=== PATIENT | male | born 1960 | race African-American/Black ===

== ENCOUNTER 2017-05-24 16:05 | Inpatient (IN) | payer BC, SELFPAY ==
[2017-05-24 16:35] LABS: Hemoglobin 15.5 g/dL (14.0-18.0); Mean Corpuscular HGB CONC 33.9 g/dL (32.0-36.0); Mean Corpuscular Hemoglobin 32.7 pg (27.0-31.0); Mean Corpuscular Volume 96.5 fl (80.0-94.0); Mean Platelet Volume 7.5 fL (7.4-10.4); Platelet Count 183 thou/uL (130-400); RBC Distribution Width 12.4 % (11.5-14.5); Red Blood Cell (RBC) Count 4.74 mill/uL (4.70-6.10); White Blood Cell (WBC) Count 2.4 thou/uL (4.8-10.8)
[2017-05-24 16:48] LABS: ALT (SGPT) 28 U/L (8-55); AST (SGOT) 67 U/L (5-34); Albumin 4.1 g/dL (3.5-5.0); Alkaline Phosphatase 62 U/L (40-150); Anion Gap 15 mmol/L (10-20); BUN (Urea Nitrogen) 13 mg/dL (8.4-25.7); Bilirubin, Total 0.4 mg/dL (0.2-1.2); CK (CPK) 1938 U/L (30-200); Calc. Creatinine Clearance 0 mL/min (70-130); Calcium 9.2 mg/dL (7.8-10.44); Carbon Dioxide 20 mmol/L (22-29); Chloride 104 mmol/L (98-107); Estimated GFR-MDRD 63; Globulin 3.3 g/dL (2.4-3.5); Glucose 108 mg/dL (70-105); Potassium 3.5 mmol/L (3.5-5.1); Protein, Total 7.4 g/dL (6.0-8.3); Sodium 135 mmol/L (136-145)
[2017-05-24 16:52] LABS: Troponin I 0.149 ng/mL (< 0.028)
[2017-05-24 17:00] LABS: Lymphocytes 77 % (21-51); MDiff Complete? YES; Monocytes 8 % (0-10); Neutrophil 15 % (42-75); PLT Morphology Comment Appears Adequate
--- NOTE | 2017-05-24 17:00 | RAD ---
PORTABLE CHEST: History: Chest pain FINDINGS: Lung severino are clear. Heart and mediastinum appear normal. Vascular markings normal. IMPRESSION: No acute finding. POS: [facility]
[2017-05-24] MEDS ORDERED: Haloperidol Lactate 5 MG/ML VIAL ONE (17:28)
[2017-05-24] MEDS ORDERED: Nitroglycerin 2% Ointment 1 INCH/1 GM Packet ONE (17:28)
[2017-05-24] MEDS ORDERED: Aspirin 325 MG TAB ONE (17:28)
[2017-05-24] MEDS ORDERED: Enoxaparin Sodium 100 MG/ML SYRINGE ONE (17:30)
[2017-05-24 19:59] LABS: Acetaminophen Less than 6.0 mcg/mL (10.0-30.0); Alcohol Less than 10 mg/dL (Less than 10); Salicylate Less than 8.0 mg/dL (15.0-30.0)
[2017-05-24 20:14] LABS: Troponin I 0.169 ng/mL (< 0.028)
[2017-05-24 21:00] LABS: Amphetamine Not Detected (NotDetected); Barbiturates Screen Not Detected (NotDetected); Benzodiazepine Screen Not Detected (NotDetected); Cocaine Metabolite Screen Not Detected (NotDetected); Medtox Reader # READER 1; Methadone Not Detected (NotDetected); Methamphetamine Not Detected (NotDetected); Opiate Screen Not Detected (NotDetected); Oxycodone Screen Not Detected (NotDetected); Phencyclidine (PCP) Not Detected (NotDetected); THC/Cannabinoid Screen Detected (NotDetected); Tricyclic Screen Not Detected (NotDetected)
[2017-05-24 21:01] LABS: Medtox Control Line Valid? VALID (VALID)
[2017-05-24] MEDS ORDERED: Ketorolac Tromethamine 30 MG/ML VIAL IVP PRN (21:19)
--- NOTE | 2017-05-24 21:29 | HP ---
REASON FOR ADMISSION: Non STEMI. HISTORY OF PRESENT ILLNESS: The patient gives history of having hiccups from last 3 days. He gets retrosternal chest pain due to hiccups. The patient also mentions that he had nearly three episodes of watery diarrhea last night, none from this morning. No complaints of abdominal pain. No complaints of palpitations, PND, or orthopnea. He had indeterminate troponin of 0.1 with CK- MB of 9.0 on arrival here. The patient also had CK levels of 1938 on arrival here. When they are trying to take him to the telemetry room from ER, the patient apparently passed out while transferring to a wheelchair. I reexamined him and is fully oriented with no complaints of chest pain or palpitations. He will be given a liter of fluid now in the ER. PAST MEDICAL AND SURGICAL HISTORY: Left ankle surgery, no medical issues as far as he knows. CURRENT MEDICATIONS: None. ALLERGIES: Allergic to PENICILLIN. PERSONAL HISTORY: Denies alcohol or drug usage, but he apparently told ER physician that he uses marijuana. Denies smoking. FAMILY HISTORY: Mother had history of pancreatic cancer and at the age of 85 years. Father had history of SD and at the age of 72 years. Sister had SD at the age of 40 years. REVIEW OF SYSTEMS: The following complete review of systems was negative, unless otherwise mentioned in the HPI or below: Constitutional: Weight loss or gain, ability to conduct usual activities. Skin: Rash, itching. Eyes: Double vision, pain. ENT/Mouth: Nose bleeding, neck stiffness, pain, tenderness. Cardiovascular: Palpitations, dyspnea on exertion, orthopnea. Respiratory: Shortness of breath, wheezing, cough, hemoptysis, fever or night sweats. Gastrointestinal: Poor appetite, abdominal pain, heartburn, nausea, vomiting, constipation, or diarrhea. Genitourinary: Urgency, frequency, dysuria, nocturia. Musculoskeletal: Pain, swelling. Neurologic/Psychiatric: Anxiety, depression. Allergy/Immunologic: Skin rash, bleeding tendency. PHYSICAL EXAMINATION: GENERAL: The patient is a 56-year-old male who is currently not in any acute distress. VITAL SIGNS: Blood pressure 126/86, pulse 86 per minute, respiratory rate 20 per minute, temperature 99.4 degrees Fahrenheit, and saturating 96% on room air. NECK: Supple, no elevated JVD. HEENT: Eyes: Extraocular muscles intact. Pupils reacting to light. Oral cavity: Mucous membranes are moist. No exudates or congestion. CARDIOVASCULAR SYSTEM: S1, S2 heard. Regular rhythm. RESPIRATORY SYSTEM: Air entry 1+ bilateral. No rales or rhonchi. ABDOMEN: Abdomen is soft, bowel sounds heard. No tenderness, rigidity or guarding. EXTREMITIES: No peripheral edema or calf tenderness. VASCULAR SYSTEM: Peripheral pulses 1+ bilateral. No ischemic ulcerations or gangrene. CENTRAL NERVOUS SYSTEM: No gross focal deficits seen. The patient is alert, awake, oriented well. PSYCHIATRIC SYSTEM: The patient's mood is euthymic. No hallucinations or delusions. LABORATORY DATA AND X-RAY FINDINGS: EKG done shows normal sinus rhythm at 98 beats per minute. There is poor R-wave progression with questionable T inversions in only two leads that is V4 and V5. White count of 2.4, H and H of 15 and 45, platelet count is 183, MCV is 96 with 15% neutrophils and 77% lymphocytes. Serum bicarbonate is 20, BUN 13, creatinine 1.4, glucose 108, AST 67, ALT 28, CK levels 1938. CK-MB 9.0, troponin I 0.14, albumin is 4.1. Chest x-ray done shows no acute cardiopulmonary abnormalities. CLINICAL IMPRESSION AND PLAN: The patient will be admitted to telemetry for a non-ST elevation myocardial infarction with mild rhabdomyolysis. He also had a temperature of 99.4 degrees. The patient's symptoms started out with hiccups and had 3 episodes of diarrhea last night. We will obtain stool studies, respiratory viral pathogen PCR. The patient is unable to localize any other symptoms at present for suspicion of any sepsis. He will be placed on full dose Lovenox and normal saline at 100 mL per hour. He will be on nitro paste half inch q.8 hourly. Full dose aspirin along with small dose of Lopressor for cardiac protection. Echo with 2D Doppler for LV function. ER physician has already spoken to Dr. Downs for Cardiology consultation as well. We will keep him on clear liquid diet for now. MTDD
[2017-05-24] MEDS ORDERED: Sodium Chloride 0.9% 10 ML ONE (21:33)
[2017-05-24 21:45] VITALS: BMI 24.3
[2017-05-24] MEDS: Nitroglycerin 2% Ointment 1 INCH/1 GM Packet TOP SCH (21:47)
[2017-05-24] MEDS: Sodium Chloride 0.9% 1,000 ML IV SCH (21:47)
[2017-05-24] MEDS: Metoprolol Tartrate 25 MG TAB PO SCH (21:48)
[2017-05-24] MEDS: Famotidine 20 MG TAB PO SCH (21:49)
[2017-05-24] MEDS: Docusate 100 MG CAP PO SCH (21:49)
[2017-05-25] MEDS: Nitroglycerin 2% Ointment 1 INCH/1 GM Packet TOP SCH ×2 (05:29→15:53)
[2017-05-25] MEDS: chlorproMAZINE HCl 25 MG TAB PO PRN ×3 (05:32→21:26)
[2017-05-25 05:43] LABS: Anion Gap 14 mmol/L (10-20); BUN (Urea Nitrogen) 10 mg/dL (8.4-25.7); Calc. Creatinine Clearance 86 mL/min (70-130); Calcium 8.2 mg/dL (7.8-10.44); Carbon Dioxide 21 mmol/L (22-29); Cardiac Risk 5.2 (Less than 4.5); Chloride 105 mmol/L (98-107); Cholesterol 146 mg/dl (< 200 Desired); Estimated GFR-MDRD 78; Glucose 126 mg/dL (70-105); HDL Cholesterol 28 mg/dL (>60 Neg Risk); LDL Cholesterol, Calculated 98 mg/dL; Potassium 3.6 mmol/L (3.5-5.1); Sodium 136 mmol/L (136-145); Triglycerides 101 mg/dL (Less than 150)
[2017-05-25 06:29] LABS: Hemoglobin 13.8 g/dL (14.0-18.0); Mean Corpuscular HGB CONC 32.8 g/dL (32.0-36.0); Mean Corpuscular Volume 97.7 fl (80.0-94.0); Mean Platelet Volume 7.8 fL (7.4-10.4); Platelet Count 166 thou/uL (130-400); RBC Distribution Width 12.3 % (11.5-14.5); Red Blood Cell (RBC) Count 4.31 mill/uL (4.70-6.10); White Blood Cell (WBC) Count 2.1 thou/uL (4.8-10.8)
[2017-05-25 06:43] LABS: Lymphocytes 46 % (21-51); MDiff Complete? YES; Monocytes 22 % (0-10); Neutrophil 32 % (42-75)
[2017-05-25] MEDS: Sodium Chloride 0.9% 1,000 ML IV SCH ×2 (07:20→11:53)
[2017-05-25] MEDS: Famotidine 20 MG TAB PO SCH ×2 (08:39→21:24)
[2017-05-25] MEDS: Metoprolol Tartrate 25 MG TAB PO SCH ×2 (08:39→21:25)
[2017-05-25] MEDS: Aspirin 325 MG TAB PO SCH (08:39)
[2017-05-25] MEDS: Docusate 100 MG CAP PO SCH ×2 (08:42→21:24)
[2017-05-25] MEDS ORDERED: Enoxaparin Sodium 100 MG/ML SYRINGE SC SCH (09:00)
--- NOTE | 2017-05-25 11:48 | PDOC.PN ---
- Subjective Encounter Start Date: 05/25/17 Encounter Start Time: 09:50 Subjective: no chest pain or palp -: is feeling better - Objective Resuscitation Status: Resuscitation Status FULL:Full Resuscitation MAR Reviewed: Yes Vital Signs & Weight: Vital Signs (12 hours) Temp Pulse Resp BP Pulse Ox 05/25/17 08:44 99.3 F 98 16 98 05/25/17 08:38 99.3 F 98 16 128/79 98 05/25/17 05:28 92 20 119/75 05/25/17 04:12 99.4 F 72 16 125/74 98 05/25/17 00:00 98.5 F 74 18 125/74 96 Weight Weight 192 lb I&O: 05/24/17 05/25/17 05/26/17 06:59 06:59 06:59 Intake Total 2306 Output Total 1450 Balance 856 Result Diagrams: 05/25/17 04:52 05/25/17 04:52 Phys Exam - Physical Examination HEENT: PERRLA, moist MMs Neck: no JVD, supple Respiratory: no wheezing, no rales Cardiovascular: RRR, no significant murmur Gastrointestinal: soft, non-tender, positive bowel sounds Musculoskeletal: no edema, pulses present Neurological: non-focal, moves all 4 limbs Psychiatric: A&O x 3 Dx/Plan (1) NSTEMI (non-ST elevated myocardial infarction) Code(s): I21.4 - NON-ST ELEVATION (NSTEMI) MYOCARDIAL INFARCTION Status: Acute Comment: stable (2) thc abuse Status: Chronic (3) Intractable hiccoughs Code(s): R06.6 - HICCOUGH Status: Acute (4) Rhabdomyolysis Code(s): M62.82 - RHABDOMYOLYSIS Status: Acute Comment: resolving (5) Mild dehydration Code(s): E86.0 - DEHYDRATION Status: Resolved - Plan is on asp, lovenox 90mg sc q12h -: echo results pending -: tamiflu for infl A -: may dc iv fluids if no procedure by cardio is planned -: on chlorpromazine prn with phenergan prn for hiccoughs * . Review of Systems - Medications/Allergies Allergies/Adverse Reactions: Allergies Allergy/AdvReac Type Severity Reaction Status Date / Time Penicillins Allergy Verified 05/24/17 20:46 Medications: Current Medications Acetaminophen (Tylenol) 650 mg PO Q4H PRN PRN Reason: Headache/Fever or Pain Aspirin (Aspirin) 325 mg PO QAM-[facility] Last Admin: 05/25/17 08:39 Dose: 325 mg Chlorpromazine HCl (Thorazine) 25 mg PO Q8H PRN PRN Reason: hiccoughs Last Admin: 05/25/17 05:32 Dose: 25 mg Docusate Sodium (Colace) 100 mg PO BID [facility] Last Admin: 05/25/17 08:42 Dose: Not Given Famotidine (Pepcid) 20 mg PO BID [facility] Last Admin: 05/25/17 08:39 Dose: 20 mg Guaifenesin/Dextromethorphan (Robitussin Dm) 15 ml PO Q4H PRN PRN Reason: Cough Sodium Chloride (Normal Saline 0.9%) 1,000 mls @ 50 mls/hr IV .Q20H [facility] Ketorolac Tromethamine (Toradol) 15 mg IVP Q6H PRN PRN Reason: Pain 4-6 Stop: 05/29/17 21:20 Last Admin: 05/25/17 05:29 Dose: 15 mg Metoprolol Tartrate (Lopressor) 12.5 mg PO BID [facility] Last Admin: 05/25/17 08:39 Dose: 12.5 mg Nitroglycerin (Nitro-Bid 2% Ointment) 0.5 inch TOP Q8HR [facility] Last Admin: 05/25/17 05:29 Dose: 0.5 inch Oseltamivir Phosphate (Tamiflu) 75 mg PO BID [facility] Stop: 05/30/17 09:01 Promethazine HCl (Phenergan) 25 mg IM/IV Q6H PRN PRN Reason: Nausea/Vomiting
--- NOTE | 2017-05-25 12:51 | CON ---
DATE OF CONSULTATION: 05/25/2017 REASON FOR CONSULTATION: Borderline troponin level. HISTORY OF PRESENT ILLNESS: Mr. Trent Barnett is a 56-year-old gentleman who presented to the [facility] yesterday with diarrhea which was watery and hiccups. He said whenever he had hiccup, he felt unco mfortable feeling in his chest. When he is not hiccupping, he did not feel that sensation. He said he had severe watery diarrhea which lasted for about 4 hours, but was intense. No abdominal pain, no palpitations, no subjective fever. CPK level was 1938. They were trying to take him from the [facility] area. From the emergency room, he either passed out or nearly passed out transferring to the [facility]. He was given a liter of fluid and felt better. PAST SURGICAL HISTORY: Left ankle surgery. PAST MEDICAL HISTORY: No medical problems. MEDICATIONS: None prior to admission. ALLERGIES: PENICILLIN. SOCIAL HISTORY: No alcohol or drugs, does use marijuana intermittently. No smoking. FAMILY HISTORY: Mother with pancreatic cancer, father at age 72. Sister, myocardial infarction at age 40. REVIEW OF SYSTEMS: CONSTITUTIONAL: No significant weight gain or loss. VISION: No changes. HEARING: No changes. PULMONARY: No cough or wheezing. GASTROINTESTINAL: No nausea, vomiting, or diarrhea. SKIN: No rashes. NEUROLOGIC: No unilateral weakness or numbness. PSYCHIATRIC: No unusual depression or anxiety. HEMATOLOGIC: No unusual bruising. GENITOURINARY: No burning with urination. MUSCULOSKELETAL: No unusual joint pain. PHYSICAL EXAMINATION: GENERAL: A pleasant 56-year-old man, resting comfortably, in no distress. VITAL SIGNS: Blood pressure 128/79, pulse 98 and regular. EYES: Sclerae nonicteric. MOUTH: Mucous membranes are moist. NECK: Supple, no lymphadenopathy. LUNGS: Clear. No wheezing, rales, or rhonchi. CARDIAC: Normal S1, normal S2. There is no murmur, rub, or gallop. ABDOMEN: Soft and nontender. No hepatosplenomegaly. EXTREMITIES: Warm and dry. No clubbing or cyanosis. There is no edema. PERTINENT LABORATORY DATA: Micro specimen came back. Nasopharyngeal swab positive for influenza A H 3. Other pertinent laboratories: White blood cell count was 2.4, dropped to 2.1 with initially only 15% neutrophils indicating he is neutropenic, followup neutrophil was 32%. White count is 2.1 indicatin g he is actually still neutropenic. Troponin level was indeterminate at 0.15. EKG: normal sinus rhythm, normal EKG. ASSESSMENT: 1. Influenza A. 2. Neutropenia, ? related to influenza A. 3. Indeterminate troponin. 4. Hiccups. 5. Normal ejection fraction of 60-65%, normal wall motion. Suspect all these findings are related t o influenza A. PLAN: 1. We started on Tamiflu. 2. Continue fluid. 3. The syncopal or near syncopal episode was probably orthostatic hypotension. 4. Check CBC tomorrow. 5. Check troponin level tomorrow. 6. Ultimately stress testing could be done, probably could not do myocardial perfusion imaging with hiccups. The imaging would certainly be suboptimal. We will reassess later today.
[2017-05-25] MEDS: Promethazine HCl 25 MG/ML VIAL IM/IV PRN ×2 (12:52→21:26)
--- NOTE | 2017-05-25 15:55 | CT ---
CT ABDOMEN AND PELVIS WITH IV CONTRAST: Date: 05-25-17 History: Tractable hiccups. Diaphragmatic abscess. FINDINGS: There is mild dependent bibasilar atelectasis and/or scarring. Lung bases are otherwise clear. The li karen, spleen, pancreas, bilateral adrenal glands, kidneys, unopacified bowel, as well as urinary bladd er demonstrate a normal CT appearance. The appendix is visualized and normal in caliber. Vascular calcifications are seen in the abdominal aorta. The abdominal aorta is normal in caliber wit hout evidence of an aortic dissection. There is no free fluid, fluid collection or lymphadenopathy seen in the abdomen or pelvis. Mild degenerative changes are seen in the spine. IMPRESSION: 1. No acute findings are seen in the abdomen or pelvis. 2. Small hiatal hernia. 3. Vascular calcifications. 4. No evidence of a subdiaphragmatic abscess collection. 5. Minimal subcutaneous soft tissue swelling as well as subcutaneous gas in the anterior aspect of th e abdomen at the level of the umbilicus, likely related to recent injections. POS: [facility]
[2017-05-25] MEDS ORDERED: Iopamidol 370 76% 100 ML VIAL ONE (16:22)
[2017-05-25] MEDS: Acetaminophen 325 MG TAB PO PRN ×2 (16:27→21:25)
[2017-05-25] MEDS: Oseltamivir 75 MG CAP PO SCH (21:25)
[2017-05-25 22:26] LABS: Hemoglobin 13.4 g/dL (14.0-18.0); Platelet Count 157 thou/uL (130-400)
[2017-05-26] MEDS: Acetaminophen 325 MG TAB PO PRN ×3 (01:31→16:28)
[2017-05-26] MEDS: Sodium Chloride 0.9% 1,000 ML IV SCH ×2 (01:34→21:13)
[2017-05-26 06:20] LABS: Troponin I 0.057 ng/mL (< 0.028)
[2017-05-26] MEDS: Docusate 100 MG CAP PO SCH ×2 (09:04→21:09)
[2017-05-26] MEDS: Oseltamivir 75 MG CAP PO SCH ×2 (09:04→21:09)
[2017-05-26] MEDS: Metoprolol Tartrate 25 MG TAB PO SCH (09:04)
[2017-05-26] MEDS: Famotidine 20 MG TAB PO SCH ×2 (09:04→21:09)
[2017-05-26] MEDS: Aspirin 325 MG TAB PO SCH (09:05)
--- NOTE | 2017-05-26 10:46 | PRG ---
DATE OF SERVICE: 05/26/2017 SUBJECTIVE: Mr. Barnett is feeling better today. He still has severe hiccups, however. He seems to have some reflux symptoms. He had a 101.2 fever last night and today 99.5. The patient's troponin level is 0.057. ASSESSMENT: 1. Influenza. 2. Leukopenia. 3. Hiccups ? reflux. PLAN: 1. Add some Maalox. 2. Troponin level is down to 0.057. I think the indeterminate troponins are probably related to the flu, not heart disease. 3. Ultimately, consideration for stress testing. The patient does not feel well enough to get on a treadmill and nuclear medicine imaging not feasible at this point due to the hiccups, would interfere with the imaging process and make the test much less accurate.
[2017-05-26] MEDS: Mag-Al 1200 mg/1200 mg/30 ML UDCUP PO SCH ×2 (11:27→16:23)
--- NOTE | 2017-05-26 13:14 | PDOC.PN ---
- Subjective Encounter Start Date: 05/26/17 Encounter Start Time: 10:15 Subjective: feels better -: minimal hiccough this am which quickly got resolved - Objective Resuscitation Status: Resuscitation Status FULL:Full Resuscitation MAR Reviewed: Yes Vital Signs & Weight: Vital Signs (12 hours) Temp Pulse Resp BP Pulse Ox 05/26/17 12:05 99.7 F H 76 16 124/78 96 05/26/17 07:20 99.5 F 79 16 114/78 95 05/26/17 04:00 101.2 F H 86 20 121/73 96 Weight Weight 195 lb 9.6 oz I&O: 05/25/17 05/26/17 05/27/17 06:59 06:59 06:59 Intake Total 2306 3487 Output Total 1450 2705 Balance 856 782 Result Diagrams: 05/25/17 22:20 05/25/17 22:20 Phys Exam - Physical Examination HEENT: PERRLA, moist MMs Neck: no JVD, supple Respiratory: no wheezing, no rales Cardiovascular: RRR, no significant murmur Gastrointestinal: soft, non-tender, positive bowel sounds Musculoskeletal: no edema, pulses present Neurological: non-focal, moves all 4 limbs Psychiatric: A&O x 3 Dx/Plan (1) Influenza A Code(s): J10.1 - FLU DUE TO OTH IDENT INFLUENZA VIRUS W OTH RESP MANIFEST Status: Acute (2) NSTEMI (non-ST elevated myocardial infarction) Code(s): I21.4 - NON-ST ELEVATION (NSTEMI) MYOCARDIAL INFARCTION Status: Acute Comment: stable (3) thc abuse Status: Chronic (4) Intractable hiccoughs Code(s): R06.6 - HICCOUGH Status: Acute (5) Rhabdomyolysis Code(s): M62.82 - RHABDOMYOLYSIS Status: Acute Comment: resolving (6) Mild dehydration Code(s): E86.0 - DEHYDRATION Status: Resolved - Plan on tamiflu -: add reglan tid before meals -: dc thorazine -: likely stress test in am if stable -: d/w * . Review of Systems - Medications/Allergies Allergies/Adverse Reactions: Allergies Allergy/AdvReac Type Severity Reaction Status Date / Time Penicillins Allergy Verified 05/24/17 20:46 Medications: Current Medications Acetaminophen (Tylenol) 650 mg PO Q4H PRN PRN Reason: Headache/Fever or Pain Last Admin: 05/26/17 05:49 Dose: 650 mg Al Hydroxide/Mg Hydroxide (Maalox) 30 ml PO TID-[facility] Stop: 05/27/17 12:01 Last Admin: 05/26/17 11:27 Dose: 30 ml Aspirin (Aspirin) 325 mg PO QAM-[facility] Last Admin: 05/26/17 09:05 Dose: 325 mg Chlorpromazine HCl (Thorazine) 25 mg PO Q8H PRN PRN Reason: hiccoughs Last Admin: 05/25/17 21:26 Dose: 25 mg Docusate Sodium (Colace) 100 mg PO BID [facility] Last Admin: 05/26/17 09:04 Dose: 100 mg Famotidine (Pepcid) 20 mg PO BID [facility] Last Admin: 05/26/17 09:04 Dose: 20 mg Guaifenesin/Dextromethorphan (Robitussin Dm) 15 ml PO Q4H PRN PRN Reason: Cough Sodium Chloride (Normal Saline 0.9%) 1,000 mls @ 50 mls/hr IV .Q20H [facility] Last Admin: 05/26/17 01:34 Dose: 1,000 mls Ketorolac Tromethamine (Toradol) 15 mg IVP Q6H PRN PRN Reason: Pain 4-6 Stop: 05/29/17 21:20 Last Admin: 05/25/17 05:29 Dose: 15 mg Oseltamivir Phosphate (Tamiflu) 75 mg PO BID [facility] Stop: 05/30/17 09:01 Last Admin: 05/26/17 09:04 Dose: 75 mg Promethazine HCl (Phenergan) 25 mg IM/IV Q6H PRN PRN Reason: Nausea/Vomiting Last Admin: 05/25/17 21:26 Dose: 25 mg
[2017-05-26] MEDS: Metoclopramide HCl 10 MG TAB PO SCH ×2 (15:02→21:09)
[2017-05-26] MEDS: Guaifenesin DM 100-10/5 ML UDCUP PO PRN ×2 (16:28→21:19)
[2017-05-27] MEDS: Guaifenesin DM 100-10/5 ML UDCUP PO PRN ×3 (02:28→12:24)
[2017-05-27 05:34] LABS: #Lymphocytes 1.3 thou/uL (1.20-3.40); #Monocytes 0.7 thou/uL (0.11-0.59); #Neutrophils 3.6 thou/uL (1.40-6.50); %Basophils 0.4 % (0.0-1.0); %Eosinophils 0.3 % (0.0-10.0); %Neutrophils 63.3 % (42.0-75.0); Hemoglobin 14.4 g/dL (14.0-18.0); Mean Corpuscular HGB CONC 32.3 g/dL (32.0-36.0); Mean Corpuscular Hemoglobin 31.6 pg (27.0-31.0); Mean Corpuscular Volume 97.6 fl (80.0-94.0); Mean Platelet Volume 7.8 fL (7.4-10.4); Platelet Count 151 thou/uL (130-400); RBC Distribution Width 12.2 % (11.5-14.5); Red Blood Cell (RBC) Count 4.55 mill/uL (4.70-6.10); White Blood Cell (WBC) Count 5.7 thou/uL (4.8-10.8)
[2017-05-27] MEDS: Famotidine 20 MG TAB PO SCH (07:20)
[2017-05-27] MEDS: Aspirin 325 MG TAB PO SCH (07:20)
[2017-05-27] MEDS: Docusate 100 MG CAP PO SCH (07:20)
[2017-05-27] MEDS: Metoclopramide HCl 10 MG TAB PO SCH (07:20)
[2017-05-27] MEDS: Mag-Al 1200 mg/1200 mg/30 ML UDCUP PO SCH ×2 (07:20→12:24)
[2017-05-27] MEDS: Oseltamivir 75 MG CAP PO SCH (07:20)
[2017-05-27] MEDS ORDERED: Metoprolol Tartrate 25 MG TAB PO SCH ×3 (11:00→21:00)
--- NOTE | 2017-05-27 11:16 | PRG ---
DATE OF SERVICE: 05/27/2017 SUBJECTIVE: Mr. Barnett is feeling somewhat better today, but still feels very fatigued after he has recently been diagnosed with influenza. His fever is coming down, but he feels very weak and washed out as would be expected. He says he is feeling better than he did a couple days ago. He has no chest pain. He continues with the hiccups and has a cough as well. OBJECTIVE: VITAL SIGNS: His blood pressure is 140/82, pulse 64 and it is regular. LUNGS: Clear. CARDIAC: Normal S1 and S2. He is hiccupping a lot. ABDOMEN: Soft, nontender. LABORATORY DATA: His WBC has improved to 5.7. He is no longer neutropenic. Patient's troponin level continues to trend down at 0.030. His peak is 0.169. ASSESSMENT: 1. Influenza A. 2. Hiccups. 3. Slight increased troponin, likely associated with influenza. 4. Normal left ventricular function. Suspect that the patient has normal wall motion on echocardiog sonali. 5. EKG is normal. We discussed stress testing today, but the patient cannot walk on a treadmill and feels too weak, sti ll from the flu and also he has a lot of hiccups and coughs, and I do not think nuclear medicine scan carina would be feasible. The images will be likely uninterpretable with all of motion artifact this w ould cause. Okay to be released home. I think the slight increased troponin level is not a non-ST e levation infarction, but likely slight increased troponin rise associated with influenza. The patien t has normal wall motion. He should be continued on the Tamiflu. I have asked him to come back and see me in the office in a week or two and we can consider stress testing. We will go ahead and resum e the low-dose beta blockers. At this point, there is no evidence of any myocarditis in terms of any wall motion abnormalities and ejection fraction is normal. The prognosis should be favorable. No o ther testing indicated at this point. The patient continues to improve influenza A. As mentioned, h is left ventricular function is normal and it is not feasible to the stress test presently.
--- NOTE | 2017-05-27 11:29 | PDOC.PN ---
- Subjective Encounter Start Date: 05/27/17 Encounter Start Time: 07:00 Subjective: no chest pain or palp -: breathing better, still gets off and on hiccoughs - Objective Resuscitation Status: Resuscitation Status FULL:Full Resuscitation MAR Reviewed: Yes Vital Signs & Weight: Vital Signs (12 hours) Temp Pulse Resp BP Pulse Ox 05/27/17 07:20 99.1 F 64 18 98 05/27/17 07:18 99.1 F 64 18 140/82 98 05/27/17 04:00 98.6 F 78 20 158/73 H 97 Weight Weight 192 lb 8 oz I&O: 05/26/17 05/27/17 05/28/17 06:59 06:59 06:59 Intake Total 3487 2880 Output Total 3936 9885 Balance 782 -245 Result Diagrams: 05/27/17 04:50 05/25/17 22:20 Phys Exam - Physical Examination HEENT: PERRLA, moist MMs Neck: no JVD, supple Respiratory: no wheezing, no rales Cardiovascular: RRR, no significant murmur Gastrointestinal: soft, non-tender, positive bowel sounds Musculoskeletal: no edema, pulses present Neurological: non-focal, moves all 4 limbs Psychiatric: A&O x 3 Dx/Plan (1) Influenza A Code(s): J10.1 - FLU DUE TO OTH IDENT INFLUENZA VIRUS W OTH RESP MANIFEST Status: Acute (2) NSTEMI (non-ST elevated myocardial infarction) Code(s): I21.4 - NON-ST ELEVATION (NSTEMI) MYOCARDIAL INFARCTION Status: Acute Comment: stable (3) thc abuse Status: Chronic (4) Intractable hiccoughs Code(s): R06.6 - HICCOUGH Status: Acute (5) Rhabdomyolysis Code(s): M62.82 - RHABDOMYOLYSIS Status: Acute Comment: resolving (6) Mild dehydration Code(s): E86.0 - DEHYDRATION Status: Resolved - Plan hemostable -: for outpt stress test in 4 weeks -: dc pt home, d/w -: counselled reg THC abuse * . Review of Systems - Medications/Allergies Allergies/Adverse Reactions: Allergies Allergy/AdvReac Type Severity Reaction Status Date / Time Penicillins Allergy Verified 05/24/17 20:46 Medications: Current Medications Acetaminophen (Tylenol) 650 mg PO Q4H PRN PRN Reason: Headache/Fever or Pain Last Admin: 05/26/17 16:28 Dose: 650 mg Al Hydroxide/Mg Hydroxide (Maalox) 30 ml PO TID-[facility] Stop: 05/27/17 12:01 Last Admin: 05/27/17 07:20 Dose: 30 ml Aspirin (Aspirin Chewable) 81 mg PO QAM-[facility] Docusate Sodium (Colace) 100 mg PO BID [facility] Last Admin: 05/27/17 07:20 Dose: 100 mg Famotidine (Pepcid) 20 mg PO BID [facility] Last Admin: 05/27/17 07:20 Dose: 20 mg Guaifenesin/Dextromethorphan (Robitussin Dm) 15 ml PO Q4H PRN PRN Reason: Cough Last Admin: 05/27/17 07:20 Dose: 15 ml Sodium Chloride (Normal Saline 0.9%) 1,000 mls @ 50 mls/hr IV .Q20H [facility] Last Admin: 05/26/17 21:13 Dose: 1,000 mls Ketorolac Tromethamine (Toradol) 15 mg IVP Q6H PRN PRN Reason: Pain 4-6 Stop: 05/29/17 21:20 Last Admin: 05/25/17 05:29 Dose: 15 mg Metoclopramide HCl (Reglan) 10 mg PO TID [facility] Last Admin: 05/27/17 07:20 Dose: 10 mg Metoprolol Tartrate (Lopressor) 12.5 mg PO NOW [facility] Stop: 05/27/17 12:00 Metoprolol Tartrate (Lopressor) 12.5 mg PO BID [facility] Oseltamivir Phosphate (Tamiflu) 75 mg PO BID [facility] Stop: 05/30/17 09:01 Last Admin: 05/27/17 07:20 Dose: 75 mg Promethazine HCl (Phenergan) 25 mg IM/IV Q6H PRN PRN Reason: Nausea/Vomiting Last Admin: 05/25/17 21:26 Dose: 25 mg Sodium Chloride (Flush - Normal Saline) 10 ml IVF Q12HR [facility] Sodium Chloride (Flush - Normal Saline) 10 ml IVF PRN PRN PRN Reason: Saline Flush
[2017-05-27 12:33] VITALS: BP 140/92; TEMP 98.8
--- NOTE | 2017-05-27 14:49 | DIS ---
DATE OF ADMISSION: 05/24/2017 DATE OF DISCHARGE: 05/27/2017 DISCHARGE DISPOSITION: To home. PRIMARY DISCHARGE DIAGNOSES: Influenza A, demand ischemia due to flu, marijuana abuse, intractable h iccups, rhabdomyolysis, and mild dehydration. PROCEDURES DONE DURING HOSPITALIZATION: Echo with 2D Doppler showed EF of 60%-65% with normal wall m otion. Abdominopelvic CAT scan done showed no acute findings. No evidence of subdiaphragmatic absce ss collection. Respiratory virus panel, PCR done was positive for influenza A(H3). H and H 14 and 4 4, platelet count 151. Troponin I was indeterminate, peaking up to 0.16. CK-MB 9.0, CK level shows 1938, LDL was 98, albumin 4.1. Urine drug screen was positive for cannabinoids. DISCHARGE MEDICATIONS: Aspirin 325 mg p.o. daily, Pepcid 20 mg twice daily, Lopressor 12.5 mg twice daily, Tamiflu 75 mg p.o. twice daily for another 4 days. ALLERGIES: PENICILLIN. INPATIENT CONSULTS: Dr. Padilla for Cardiology. BRIEF COURSE DURING HOSPITALIZATION: Patient initially got admitted on the with complaints of i ntractable hiccups and had indeterminate troponins as well. He had fever with rhabdomyolysis as well . The patient's viral PCR came back positive for influenza A. He was placed on Thorazine for hiccup s with Phenergan, which is almost resolving. Serial troponin was done and he has had consultation wi Dr. Padilla. Likely his indeterminate troponin is due to demand ischemia from influenza A. Echo w ith 2D Doppler done showed normal LV function and ejection fraction. He will likely need to see Dr. Padilla in 4 weeks for outpatient stress test. He is hemodynamically stable for discharge otherwise a nd has been cleared by Cardiology. Please see a [id number].
[2017-05-28] MEDS ORDERED: Aspirin 325 MG TAB PO SCH (08:00)
--- NOTE | 2017-05-29 00:18 | EKG ---
Test Reason : Blood Pressure : / mmHG Vent. Rate : 073 BPM Atrial Rate : 073 BPM P-R Int : 136 ms QRS Dur : 080 ms QT Int : 402 ms P-R-T Axes : 076 071 078 degrees QTc Int : 442 ms Normal sinus rhythm Normal ECG When compared with ECG of 24-MAY-2017 18:48, (Unconfirmed) No significant change was found Confirmed by Luisana JAY ([id number]) on 05/29/2017 12:18:14 AM Referred By: JB Confirmed By:Luisana JAY
== END 2017-05-27 14:07 | disposition home or self-care (01) | DRG 194 ==
LOC: ERS 16:05 → 2NO 17:23
PROVIDERS: ADMIT Internal Medicine; ATTEND Internal Medicine
DX: J10.1 Influenza due to other identified influenza virus with other respiratory manifestations (principal); M62.82 Rhabdomyolysis; I24.8 Other forms of acute ischemic heart disease; E86.0 Dehydration; Z88.0 Allergy status to penicillin; R06.6 Hiccough; F12.10 Cannabis abuse, uncomplicated; Z82.49 Family history of ischemic heart disease and other diseases of the circulatory system; R19.7 Diarrhea, unspecified; I95.1 Orthostatic hypotension
CPT/HCPCS: 36415; 71045; 74177; 80048; 80053; 80061; 80306; 80307; 82550; 82553; 84484; 85025; 87633; 93005; 93010; 93306; 94760; 96360; 96372; A4216; J1630; J1650; J1885; J2550; Q0161

== ENCOUNTER 2019-09-19 10:30 | Emergency (ER) | payer OTHER, SELFPAY ==
[2019-09-19] MEDS ORDERED: Ketorolac Tromethamine 30 MG/ML VIAL ONE (11:44)
--- NOTE | 2019-09-19 12:49 | RAD ---
LUMBAR SPINE 3 VIEWS: Date: 09/19/2019 HISTORY: Back pain. FINDINGS: Lumbar vertebra maintain normal height and alignment. Disc spaces are preserved. Mild degenerative sp urring. No evidence of spondylolisthesis or spondylolysis. IMPRESSION: Mild degenerative change. POS: [facility]
== END 2019-09-19 12:49 | disposition home or self-care (01) ==
LOC: ERS 10:30
DX: S39.012A Strain of muscle, fascia and tendon of lower back, initial encounter (principal); X58.XXXA Exposure to other specified factors, initial encounter
CPT/HCPCS: 72100; 96372; J1885

== ENCOUNTER 2019-10-13 13:13 | Emergency (ER) | payer SELFPAY ==
[2019-10-13 14:13] LABS: #Basophils 0.1 thou/uL (0.0-0.2); #Eosinphils 0.2 thou/uL (0.0-0.7); #Monocytes 0.6 thou/uL (0.11-0.59); #Neutrophils 3.7 thou/uL (1.40-6.50); %Basophils 1.4 % (0.0-1.0); %Eosinophils 2.8 % (0.0-10.0); %Lymphocytes 30.3 % (21.0-51.0); %Monocytes 9.5 % (0.0-10.0); Hemoglobin 14.1 g/dL (14.0-18.0); Mean Corpuscular HGB CONC 32.5 g/dL (32.0-36.0); Mean Corpuscular Hemoglobin 31.6 pg (27.0-31.0); Mean Corpuscular Volume 97.4 fL (78.0-98.0); Mean Platelet Volume 6.3 fL (7.4-10.4); Platelet Count 459 thou/uL (130-400); RBC Distribution Width 12.3 % (11.5-14.5); Red Blood Cell (RBC) Count 4.48 mill/uL (4.70-6.10); White Blood Cell (WBC) Count 6.5 thou/uL (4.8-10.8)
[2019-10-13 14:39] LABS: ALT (SGPT) 13 U/L (8-55); AST (SGOT) 14 U/L (5-34); Albumin 4.2 g/dL (3.4-4.8); Alkaline Phosphatase 96 U/L (40-110); Anion Gap 11 mmol/L (10-20); BUN (Urea Nitrogen) 8 mg/dL (8.4-25.7); Bilirubin, Total 0.3 mg/dL (0.2-1.2); Calc. Creatinine Clearance 0 mL/min (70-130); Calcium 9.5 mg/dL (7.8-10.44); Carbon Dioxide 29 mmol/L (23-31); Chloride 104 mmol/L (98-107); Estimated GFR-MDRD 67; Globulin 3.8 g/dL (2.4-3.5); Glucose 94 mg/dL (80-115); Lipase 75 U/L (8-78); Sodium 140 mmol/L (136-145)
[2019-10-13] MEDS ORDERED: Diazepam 5 MG TAB ONE (15:18)
[2019-10-13] MEDS ORDERED: Fentanyl 100 MCG/2 ML VIAL ONE (15:18)
[2019-10-13 15:52] LABS: Bilirubin Negative (Negative); Blood, Urine Negative (Negative); Clarity Clear (Clear); Glucose, Urine (Dipstick) Normal (Negative); Leukocyte Negative Leu/uL (Negative); Nitrite Negative (Negative); Protein, Urine (Dipstick) Negative (Neg-Trace); Urobilinogen Normal mg/dL (Less than 2)
== END 2019-10-13 17:08 | disposition home or self-care (01) ==
LOC: ERS 13:13
DX: S39.012A Strain of muscle, fascia and tendon of lower back, initial encounter (principal); X58.XXXA Exposure to other specified factors, initial encounter
CPT/HCPCS: 36415; 80053; 81003; 83605; 83690; 85025; 96374; J3010